=== PATIENT | female | born 1965 | race Caucasian/White ===

== ENCOUNTER → 2019-06-26 | Outpatient (CLI) | payer OTHER ==
--- NOTE | 2019-06-26 16:10 | KCIC ---
Bilateral digital screening mammograms: Reason for examination: Routine screening. Comparison is made to previous studies dated 01/04/2015 and 07/17/2008. Interpretation was made with the benefit of CAD. The skin and nipples show no abnormalities. No abnormal axillary lymph nodes are seen. The breast parenchyma shows scattered fibroglandular density. (Breast density: Category B.) There are some calcifications in the upper outer quadrants of the right breast posteriorly in the 10:00 C position. These are probably benign but are new since previous exam. Recommend close follow-up with reevaluation of the right breast 6 months. There continues to be a small nodule present anterior medially in the right breast which is unchanged. There are no other dominant masses, suspicious calcifications or architectural distortions. Impression: New punctate calcifications in the upper outer quadrant of the right breast posteriorly at the 10:00 C position. These are probably benign but recommend close follow-up with reevaluation with mammograms in 6 months. BI-RADS Category 3: Probably benign. "Our facility is accredited by the [employer] Mammography [employer]." This patient's information has been entered into a reminder system for the patient to be notified with the results of her examination and a target date for the next mammogram. Electronically signed by: Kyung Emery MD (06/26/2019 4:07 PM) [id number]
== END | disposition home or self-care (01) ==
LOC: KCIC MAMMO 14:58
PROVIDERS: ATTEND Family Medicine
DX: Z12.31 Encounter for screening mammogram for malignant neoplasm of breast (principal); N64.89 Other specified disorders of breast; N63.10 Unspecified lump in the right breast, unspecified quadrant
CPT/HCPCS: 77067

== ENCOUNTER → 2020-10-15 | Outpatient (CLI) | payer OTHER ==
--- NOTE | 2020-10-15 14:04 | RAD ---
Examination: 1. Bilateral digital diagnostic mammogram. INDICATION: Patient due for screening presents for short-term follow-up probably benign calcification s in the posterior upper outer right breast COMPARISON: Bilateral mammograms of 01/04/2015 and 06/26/2019 TECHNIQUE: CC and MLO views of both breasts were obtained with 2-D and 3-D technique. Magnification v iews of the right breast was also obtained in the CC and ML projections. A full field right ML view w as also obtained. FINDINGS: Scattered fibroglandular densities. The left mammogram is negative. The right breast shows persistence of the cluster of calcifications in the posterior upper outer righ t breast that are new from 2015. Magnification views obtained today show that these calcifications are loosely grouped and vary in siz e, shape and density. No associated mass. They have increased slightly since the last mammogram and a re considered suspicious. IMPRESSION: Suspicious cluster of calcifications in the posterior upper outer right breast. BI-RADS Category 4 Findings suspicious for malignancy Stereotactic right breast biopsy is recommended. Discussed with patient. Findings and recommendations telephoned to the patient's referring provider Hosea Hollis APRN where her nurse Constanza took the telephone report on her behalf at 1:57 PM on 021 Electronically signed by: Aidan Shore MD (10/15/2020 2:02 PM) [id number]
== END ==
LOC: MAMMO 09:42
PROVIDERS: ATTEND Nurse Practitioner
DX: R92.1 Mammographic calcification found on diagnostic imaging of breast (principal)
CPT/HCPCS: 77066; G0279; 77062